=== PATIENT | female | born 1930 | race Caucasian/White ===

== ENCOUNTER 2016-07-13 15:54 | Inpatient (IN) | payer OTHER, BC ==
[~2016-07-13] VITALS: Ht 162.6 cm; Wt 68.2 kg
[~2016-07-13 15:54] MED LIST: ALBUTEROL SULF8.5 GM IH; ALBUTEROL2.5 MG/0.5 IH; ALLEGRA ALLERG180 MG PO; ASMANEX TW200 MICRO1 IH; ASPIRIN325 MG PO; CALTRATE 600 +1 EAC2 PO; CALTRATE 600 +1 EACH; CALTRATE 6001 TABLE1 PO; CALTRATE PLUS1 EACH PO; CARBIDOPA; CARDIZEM CD120 MG PO; CARDIZEM CD180 MG PO; CARDIZEM30 MG PO; CLARITIN10 M3 PO; CLARITIN10 MG PO; CYANOCOBALAM1000 MCG PO; Caltrate 600/400 PO; DULERA 100 MCG/13 GM IH; Dulcolax PR; Dulera 100 mcg/5 mcg IH; EXELON1 EAC2 TD; FERROUS SULFAT325 MG PO; FLONASE16 G1 BOTH NARES; FLONASE16 G1 NS; FLUOXETINE HCL20 MG PO; FOSAMAX70 MG PO; Fortical, Miacalcin ALT NARES; Fosamax PO; KEFLEX500 MG PO; LEVOTHYROXINE50 MCG PO; LORTAB 5-325 M1 EACH PO; MICONAZOLE NITR30 GM TP; MIRTAZAPINE15 MG PO; NAMENDA10 MG PO; NORCO 5/3251 TABLET PO; OXYTROL TRANSD3.9 MG TD; PERCOCET 5/31 TABLET PO; PROVENTIL HFA6.7 GM IH; PROVENTIL,2.5 MG/0.5 IH; PROZAC20 MG PO; SINEMET CR 25-1 EACH PO; TRAMADOL HCL50 MG PO; TYLENOL EXTRA500 MG PO; TYLENOL REGULA325 MG PO; ULTRAM50 MG PO; ZEGERID OTC 201 EACH; ZEGERID OTC 201 EACH PO; ZOFRAN ODT4 MG PO; [UNRECOGNIZED DRUG - CODE] IH
[2016-07-13 16:32] LABS: HEMATOCRIT 50.8 % (36.0-46.0); MCH 30.5 PG (29.0-34.0); MCHC 32.3 G/DL (30.0-36.0); MCV 94.4 FL (83-99); MEAN PLAT.VOLUME 9.6 uM^3 (9.5-12.4); PLATELET COUNT 317 K/uL (156-360); RBC DIS.WIDTH-CV 13.7 % (11.8-14.6); RBC DIS.WIDTH-SD 47.4 % (39-53); RED BLOOD COUNT 5.38 M/uL (3.80-5.20); WHITE BLOOD COUNT 21.7 K/uL (4.1-10.2)
[2016-07-13 16:41] LABS: CHLORIDE 109 mEq/L (99-109); POTASSIUM 4.2 mEq/L (3.7-5.4); SODIUM 144 mEq/L (136-147)
[2016-07-13 16:42] LABS: MAGNESIUM 2.1 mg/dL (1.3-2.7)
[2016-07-13 16:43] LABS: GLUCOSE 181 mg/dL (70-99)
[2016-07-13 16:45] LABS: ANION GAP 15 MEQ/L (2-14)
[2016-07-13 16:47] LABS: ALKALINE PHOSPHATASE 82 IU/L (3-129); GFR ESTIMATE (CALCULATED) 41 mL/min/
[2016-07-13 16:48] LABS: UREA NITROGEN (BUN) 19 mg/dL (9-23)
[2016-07-13 16:54] LABS: TROP-I INTERPRETATION NEGATIVE; TROPONIN-I < 0.01 ng/mL (0.0-0.30)
[2016-07-13 17:05] LABS: BASE EXCESS -4.3 mEq/L (-3 to +3); BICARBONATE 20.2 mEq/L (22-26); CARBOXY HGB 1.7 % (0-5); METHEMOGLOBIN 1.1 % (0-1.5); PCO2 35 mm Hg (35-45); PO2 119 mm Hg (80-100); pH 7.37 (7.35-7.45)
[2016-07-13 17:06] LABS: COMMENTS - BLOOD GASES A+C+; DEVICE MASK VENT; FI02 60 %; PEEP 5 CM/H20; PRES. SUPPORT 15 CM/H2O; SITE LR; TIDAL VOLUME 430 ML; TOTAL RESP RATE 38 resp/min
[2016-07-13 17:17] LABS: INFLUENZA A VIRAL ANTIGEN NEGATIVE; INFLUENZA B VIRAL ANTIGEN NEGATIVE
[2016-07-13] MEDS ORDERED: OMEPRAZOLE40 M1 PO (18:20)
[2016-07-13] MEDS ORDERED: ALLEGRA ALLERG180 MG PO (18:20)
[2016-07-13] MEDS ORDERED: EXELON PATCH9.5 MG TD (18:21)
[2016-07-13] MEDS ORDERED: CARDIZEM CD180 MG PO (18:22)
[2016-07-13] MEDS ORDERED: MEMANTINE HCL10 MG PO (18:24)
[2016-07-13] MEDS ORDERED: VENTOLIN HFA18 GM IH (18:24)
[2016-07-13] MEDS ORDERED: TRAMADOL HCL50 MG PO (18:25)
[2016-07-13] MEDS ORDERED: MIRTAZAPINE15 MG PO (18:25)
[2016-07-13 20:20] VITALS: BP 131/58
[2016-07-13 20:30] VITALS: BP 131/58
[2016-07-13 20:45] VITALS: BP 135/73
[2016-07-13 21:00] VITALS: BP 118/68
[2016-07-13 21:15] VITALS: BP 102/74
[2016-07-13 21:57] LABS: METH RESISTANT S AUREUS PCR NEGATIVE (NEGATIVE)
[2016-07-13 21:59] LABS: PROBE CHECK PASS; SPECIMEN PROCESSING CONTROL PASS
[2016-07-13 22:35] LABS: ABS NEUTROPHIL COUNT 19.1; BASOPHILS 0.5 %; EOSINOPHIL ABS CT 0; LYMPHOCYTES 6.5 % (15.0-45.0)
[2016-07-13 23:00] VITALS: BP 124/65
[2016-07-13 23:33] LABS: POINT-OF-CARE METER ID UU14162636; POINT-OF-CARE USER ID RADDRS44
[2016-07-14] VITALS (28 sets, daily range): BP systolic 0–97; BP diastolic 0–60
[2016-07-14 01:04] LABS: CHLORIDE 119 mEq/L (99-109); POTASSIUM 4.1 mEq/L (3.7-5.4); SODIUM 145 mEq/L (136-147)
[2016-07-14 01:06] LABS: GLUCOSE 245 mg/dL (70-99)
[2016-07-14 01:07] LABS: ANION GAP 13 MEQ/L (2-14); MAGNESIUM 2.7 mg/dL (1.3-2.7)
[2016-07-14 01:10] LABS: GFR ESTIMATE (CALCULATED) 35 mL/min/
[2016-07-14 01:11] LABS: UREA NITROGEN (BUN) 24 mg/dL (9-23)
[2016-07-14 01:15] LABS: TROP-I INTERPRETATION NEGATIVE; TROPONIN-I 0.02 ng/mL (0.0-0.30)
[2016-07-14 02:03] LABS: HEMATOCRIT 52.3 % (36.0-46.0); HEMATOLOGY COMMENT 1 SN; MCH 30.9 PG (29.0-34.0); MCHC 30.4 G/DL (30.0-36.0); MEAN PLAT.VOLUME 9.7 uM^3 (9.5-12.4); PLAT.SUFFICIENCY ADEQUATE; PLATELET COUNT 324 K/uL (156-360); RBC DIS.WIDTH-CV 14.1 % (11.8-14.6); RBC DIS.WIDTH-SD 53.2 % (39-53); RED BLOOD COUNT 5.15 M/uL (3.80-5.20)
[2016-07-14 05:51] LABS: HEMATOCRIT 55.3 % (36.0-46.0); MCH 30.6 PG (29.0-34.0); MCHC 29.8 G/DL (30.0-36.0); MEAN PLAT.VOLUME 9.8 uM^3 (9.5-12.4); NRBC (%) 0.2 /100 WBC (0-0); PLATELET COUNT 283 K/uL (156-360); RBC DIS.WIDTH-CV 14.2 % (11.8-14.6); RBC DIS.WIDTH-SD 53.8 % (39-53)
[2016-07-14 05:54] LABS: MCV 102.4 FL (83-99)
[2016-07-14 05:54] LABS: MCV 101.6 FL (83-99); WHITE BLOOD COUNT 8.5 K/uL (4.1-10.2)
[2016-07-14 06:15] LABS: ANION GAP 14 MEQ/L (2-14); CHLORIDE 118 MEQ/L (99-109); GFR ESTIMATE (CALCULATED) 30 mL/min/; MAGNESIUM 2.6 mg/dl (1.3-2.7); POTASSIUM 4.2 MEQ/L (3.7-5.4); SAMPLE HEMOLYSIS CHECK 0; SAMPLE ICTERIC CHECK 0; SAMPLE LIPEMIA CHECK 0; SODIUM 148 MEQ/L (136-147); UREA NITROGEN (BUN) 33 mg/dL (9-23)
[2016-07-14 06:18] LABS: TROP-I INTERPRETATION NEGATIVE; TROPONIN-I 0.12 ng/mL (0.0-0.30)
[2016-07-14 06:26] LABS: GLUCOSE 107 mg/dL (70-99)
[2016-07-14 07:18] LABS: Estimated Average Glucose 97 mg/dL (70-123)
[2016-07-14 13:14] LABS: POINT-OF-CARE METER ID UU14174217
[2016-07-15] VITALS (9 sets, daily range): BP systolic 76–98; BP diastolic 44–62
[2016-07-15 01:37] LABS: ADD MIUA? YES; BILIRUBIN NEGATIVE; BLOOD MODERATE; COLOR AMBER ((YELLOW)); GLUCOSE (STRIP) 50; KETONES 5; LEUKOCYTES LARGE; NITRITE NEGATIVE; PROTEIN (STRIP) 100; SPECIFIC GRAVITY 1.019 (1.000-1.030); UROBILINOGEN 0.2 MG/DL (0.2-1.0)
[2016-07-15 01:57] LABS: UR CREATININE CONCENTRATION 95.6 MG/DL
[2016-07-15 02:16] LABS: WHITE BLOOD CELLS TNTC /HPF (0-5)
[2016-07-15 02:17] LABS: BACTERIA 3+ /HPF; CASTS PRESENT /LPF; CRYSTALS NONE SEEN; EPITHELIAL CELLS RARE /HPF; MUCUS NONE SEEN /LPF; RED BLOOD CELLS 0-5 /HPF (0-5); UCUL ADDED? YES
[2016-07-15 02:18] LABS: FINE GRANULAR CASTS 0-5 /LPF; HYALINE CASTS 0-5 /LPF
[2016-07-15 06:33] LABS: ANION GAP 20 MEQ/L (2-14); CHLORIDE 110 MEQ/L (99-109); GLUCOSE 136 mg/dL (70-99); POTASSIUM 4.8 MEQ/L (3.7-5.4); SAMPLE HEMOLYSIS CHECK 0; SAMPLE ICTERIC CHECK 0; SAMPLE LIPEMIA CHECK 0; SODIUM 145 MEQ/L (136-147)
[2016-07-15 06:38] LABS: GFR ESTIMATE (CALCULATED) 14 mL/min/; MAGNESIUM 2.2 mg/dl (1.3-2.7); UREA NITROGEN (BUN) 82 mg/dL (9-23)
[2016-07-15 06:42] LABS: HEMATOCRIT 43.2 % (36.0-46.0); MCH 30.8 PG (29.0-34.0); MCHC 31.3 G/DL (30.0-36.0); NRBC (%) 0.2 /100 WBC (0-0); RBC DIS.WIDTH-SD 53.8 % (39-53); RED BLOOD COUNT 4.39 M/uL (3.80-5.20)
[2016-07-15 06:50] LABS: MCV 98.4 FL (83-99)
[2016-07-15 14:54] LABS: MEAN PLAT.VOLUME 10.8 uM^3 (9.5-12.4); PLAT.SUFFICIENCY ADEQUATE
[2016-07-15 15:36] LABS: PLATELET COUNT 165 K/uL (156-360)
== END 2016-07-15 11:35 | DRG 189 ==
LOC: EME → EDBD 15:54 → 4WEST 18:27 → EDOF 18:27 → 4WEST 20:15
PROVIDERS: Emergency Medicine; Internal Medicine Nephrology
PROC: 5A09458 Assistance with Respiratory Ventilation, 24-96 Consecutive Hours, Intermittent Positive Airway Pressure (ICD-10-PCS; principal; 2016-07-13)
DX: J96.01 Acute respiratory failure with hypoxia (principal); J69.0 Pneumonitis due to inhalation of food and vomit; E87.2 Acidosis; N17.9 Acute kidney failure, unspecified; J45.901 Unspecified asthma with (acute) exacerbation; J20.9 Acute bronchitis, unspecified; E86.0 Dehydration; D75.1 Secondary polycythemia; E11.65 Type 2 diabetes mellitus with hyperglycemia; K21.9 Gastro-esophageal reflux disease without esophagitis; F03.90 Unspecified dementia, unspecified severity, without behavioral disturbance, psychotic disturbance, mood disturbance, and anxiety; G20 Parkinson's disease; E03.9 Hypothyroidism, unspecified; F32.9 Major depressive disorder, single episode, unspecified; Z66 Do not resuscitate; Z51.5 Encounter for palliative care; I25.2 Old myocardial infarction; Z98.2 Presence of cerebrospinal fluid drainage device; Z88.0 Allergy status to penicillin; Z88.1 Allergy status to other antibiotic agents; Z88.2 Allergy status to sulfonamides
CPT/HCPCS: 36600; 71010; 80048; 80048 91; 80053; 81003; 82436; 82570; 82803; 82948; 83036; 83605; 83735; 83880; 84100; 84133; 84300; 84484; 84540; 85025; 85027; 87040; 87070; 87086; 87205; 87502; 87641; 93005; 93306; 94002; 94003; 94640; 94640 76; 94644; 94799; 99202; 99281; 99285; C9113; J0692; J1100; J1630; J1650; J1815; J1956; J2060; J2185; J2270; J2920; J2930; J3010; J3370; J3475; J7030; J7040; J7050; J7070; J7644; P9045